=== PATIENT | male | born 1985 | race Caucasian/White ===

== ENCOUNTER 2024-10-19 21:20 | Emergency (ER) | payer BC, SELFPAY ==
[2024-10-19 21:26] VITALS: BP 167/105
[2024-10-19 21:47] LABS: Hematocrit 41.0 % (39.0-52.0); Hemoglobin 13.6 g/dL (13.0-18.0); Mean Corp Hgb Conc. 33.2 g/dL (33.0-37.0); Mean Corpuscular Volume 84.0 fL (80.0-94.0); Nucleated Red Blood Cells % 0 % (-); Platelet Count 218 10^3/uL (130-400); Red Cell Dist. Width 14.1 % (11.5-14.5)
[2024-10-19 22:06] LABS: Troponin I < 0.012 ng/ml
[2024-10-19 22:27] VITALS: BP 143/79
[2024-10-19 22:41] LABS: ALT (SGPT) 29 U/L (0-50); AST (SGOT) 25 U/L (17-59); Albumin 4.9 g/dl (3.5-5.0); Alkaline Phosphatase 41 U/L (38-126); Blood Urea Nitrogen 24 mg/dl (9-20); Calcium 9.5 mg/dl (8.4-10.2); Carbon Dioxide 23 mmol/L (22-30); Glucose 97 mg/dl (70-99); Potassium 3.9 mmol/L (3.5-5.1); Sodium 141 mmol/L (135-145); Total Protein 8.1 g/dl (6.3-8.2); eGFR > 60.00
[2024-10-19 22:47] VITALS: BP 126/71
[2024-10-19 22:47] LABS: Chloride 108 mmol/L (98-107)
[2024-10-19 23:00] VITALS: BP 133/75
[2024-10-19 23:06] VITALS: BMI 39.3
[2024-10-19 23:58] VITALS: BP 128/67; BP 131/81; BP 135/76; PULSE 62; PULSE 66
[2024-10-20 00:55] LABS: Troponin I < 0.012 ng/ml
[2024-10-20 01:00] VITALS: BP 106/65
[2024-10-20 01:02] LABS: D-Dimer < 0.27 ug/mlFEU (0.00-0.50)
--- NOTE | 2024-10-20 01:02 | ED.GENMED ---
History of Present Illness
General
Chief Complaint: Chest Pain
Source: patient
Exam Limitations: none
Time Seen by Provider: 10/19/24 23:25
Nursing documentation reviewed up to this point in time: agreed with
History of Present Illness
History of Present Illness:
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
lightheadedness and left sided chest pain. Patient reports that his symptoms started around 8:30 PM this evening. They started when he was driving back from work. The pain comes on randomly and is not related to exertion or eating. He feels the
pain on the left side of his chest. He denies any recent heavy lifting. He denies any history of MS. He is never had pain like this before. He states that when he takes a deep breath, he feels the pain more. Patient also reports that he feels
some intermittent tingling in his arms and legs that comes and goes at random. He denies any family history of coronary artery disease. He does not take any Lasix for cardiomyopathy and denies any shortness of breath. He also feels like he has
intermittent palpitations. He denies dizziness, visual changes, syncopal episodes. He follows with Dr. De La Garza with [facility] who is an [employer] worker and he also follows with a congenital heart disease specialist with [facility].
Past History
Past History
ED Past Medical History: Other (Congenital heart disease)
ED Past Surgical History: Cardiac
Social History
Tobacco: Non-smoker
Employment: Employed
Family History
Family History: Other (Noncontributory)
Review of Systems
Review of Systems
All Other Systems: ROS reviewed and negative except as documented in HPI and ROS
Phy Exam
Physical Exam
Physical Exam:
General: Patient is well appearing and in no acute distress; non-toxic
Skin: Warm and dry, no rashes or lesions
Head: Normocephalic, atraumatic
Eyes: Sclera non-icteric. EOMs intact.
Cardiac: Regular rate and rhythm, no murmurs, mild tenderness palpation of the left external chest wall
Peripheral Vascular: No lower extremity swelling or edema
Pulm: Normal respiratory effort, no wheezes, rales, rhonchi
Abdomen: No abdominal tenderness to palpation
Neuro: CN II-XII intact, no focal neurologic deficits.
Psychiatric: Appropriate mood and affect.
Scores
Heart Score for Chest Pain Patients
STEMI patient?: No
History: Slightly or Non-Suspicious
ECG: Normal
Age: </= 45 years
Risk Factors: 1 or 2 Risk Factors
Troponin: </= Normal Limit
Heart Score for Chest Pain Patients: 1
Heart Score Risk: 2.5% MACE over next 6 weeks
Course
Orders/Labs/Results
Orders:
Orders
10/19/24 00:30
Electrocardiogram (*1) Urgent
Reason for Study: Chest Pain
Troponin I Urgent
10/19/24 21:21
Electrocardiogram (*1) Urgent
Reason for Study: Chest Pain
EKG- Treatment ONCE
10/19/24 21:25
Cardiac Monitoring- Treatment ONCE
IV Insert/Care/Rem.- Treatment PRN
O2 Therapy [RESP] Urgent
Titrate/Wean O2 to maintain O2 sat greater than (%): 90
Special Instructions: Maintain sats >/=90%
Pulse Ox/spot Check [RESP] Urgent
Quantity: 1
Special Instructions: ON ROOM AIR
10/19/24 21:31
Complete Blood Count/With Diff Urgent
Comprehensive Metabolic Panel Urgent
Troponin I Urgent
10/19/24 23:40
D-Dimer Urgent
CR Chest - 2 Views Urgent
Comment:
Reason For Exam: shortness of breath, dizzinesss
10/19/24 23:45
Orthostatic VS- Treatment ONCE
10/20/24 00:04
pacemaker [Interrogate Pacemaker- Treatment] ONCE
10/20/24 00:14
NT-proBNP Urgent
Comment: COMBINED ORDERS
10/20/24 01:04
0.9% Sodium Chloride 500 ml [Nss] 500 ml IV BOLUS
Abnormal Lab Results
10/19/24
21:31
Chloride 108 H mmol/L
(98-107)
BUN 24 H mg/dl
(9-20)
10/19/24 21:31
10/19/24 21:31
Vital Signs
Initial and Last Documented VS:
Initial Vital Signs
Temp Pulse Resp BP Pulse Ox
97.9 F 73 19 167/105 97
10/19/24 21:26 10/19/24 21:26 10/19/24 21:26 10/19/24 21:26 10/19/24 21:26
Last Documented Vital Signs
Temp Pulse Resp BP Pulse Ox
97.9 F 71 17 122/78 96
10/19/24 21:26 10/20/24 01:56 10/20/24 01:56 10/20/24 01:56 10/20/24 01:56
MDM/Problems Addressed
Differential Diagnosis Includes:
Differentials include ACS, acute heart failure, musculoskeletal sprain/strain, GERD, dysrhythmia
MDM/Problems Addressed:
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
lightheadedness and left sided chest pain. It started when he was driving. He reports that the pain comes and goes at random. Currently, he does not feel the pain but feels slightly lightheaded and has a sensation of tingling in his upper and
lower extremities. Physical exam he is well-appearing in no acute distress he has minimal tenderness of the left external chest wall his heart is regular in rhythm with no murmurs. His lungs are clear. He does have a significant cardiac history
with congenital heart disease and pacemaker induced cardiomyopathy. He had blood work done he had an troponin x 2 and his EKG does not show any concerning findings. He went for chest x-ray which showed mild cardiomegaly but no signs of acute
pulmonary edema no signs of any pleural effusions. His blood work does show slightly elevated BUN. He received IV fluids. Suspect the mild dehydration, patient has not exhibited any signs of GI bleeding he has not had dark tarry stools no
abdominal pain, no hematemesis no rectal bleeding. In addition his hemoglobin is normal. Patient symptoms seem to improve with IV fluids. He is currently chest pain-free. He feels well enough to be discharged. He got a pacemaker interrogation
here as well which showed no evidence of dysrhythmias recently. Advised patient to continue to monitor his symptoms and to call his primary general handling supervisor to schedule a follow-up appointment this week. Patient expressed understanding. Strict return
precautions discussed. Patient stable for discharge
Chronic conditions affecting care:
Congenital heart disease, pacemaker induced cardiomyopathy, A-fib in the past
*Pulse Oximetry
SaO2: 95
Oxygen Mode of Delivery: Room air
Patient hypoxic: no
*Critical Care Note
Total Time (30-74mins, 75-104mins- exclusive of procedures): Not Applicable
Data Reviewed
Review of Other/Old Records Reveals: Records (Reviewed external medical report summary, reviewed appointment summary from patient seen for general medical exam, reviewed August 04, 2020 medical exam he is doing well and his labs are
normal he is working on exercise and weight loss) and Discharge Summary (Reviewed ER physician augmentation from 10/24/2016 patient seen for anxiety and chest discomfort he had a unremarkable workup and was chest pain-free at the time of discharge)
Source: patient and records
Patient Management
Escalation/DeEscalation of care consider admission/obs:
Admit not indicated, patient stable for discharge
ED Attending Note
-
Portions of this chart may have been created with voice recognition software.� Occasional wrong word or��sound alike� substitutions may have occurred due to the inherent limitations of voice recognition software.
Discharge Plan
Departure
Patient Disposition: Home (Routine Discharge)
Date of Disposition: 10/20/24
Time of Disposition: 02:00
Patient with high blood pressure during this ER visit?: Yes
Condition: Good
Discharge Problem:
Chest pain, Episodic lightheadedness
Instructions: Chest pain - Discharge instructions, BLOOD PRESSURE
Prescriptions:
No Action
lorazepam 0.5 MG tablet
0.5 mg PO Q6HPRN PRN (Reason: anxiety) Qty: 10 0RF
Referrals:
Alexis Bunch DO [Family Provider, Family Practice]
Activity Restrictions/Additional Instructions:
Please call your primary general handling supervisor to schedule follow-up appointment. Please continue to monitor your symptoms and rest tomorrow.
PLEASE RETURN EMERGENCY DEPARTMENT SHOULD YOU DEVELOP SHORTNESS OF BREATH, FAINTING SPELLS, RECTAL BLEEDING, DARK TARRY STOOLS, ABDOMINAL PAIN, FEVERS OR CHILLS, COUGHING UP OF BLOOD, ACUTE WORSENING OR SYMPTOMS, OR ANY OTHER SIGNS OR SYMPTOMS
WORRISOME TO YOU.
Interventions
Interventions:
*Risk Screen - Suicide Last Done: 10/19/24 21:26
*General Assessment Last Done: 10/19/24 23:07
*Neglect/Abuse Screening Last Done: 10/19/24 21:26
*ED- Fall Risk Assessment Last Done: 10/19/24 23:07
*ED COVID-19 Vaccine History Last Done: 10/19/24 23:07
*Nursing Disposition Last Done: 10/20/24 02:07
ED- Cardiac Assessment Last Done: 10/19/24 23:09
Discharge Date and Time
Discharge Date/Time: 10/20/24 02:08
Print Language: [place] CITIZ[place]
[2024-10-20] MEDS: NSS 500 IV (01:11)
[2024-10-20 01:56] VITALS: BP 122/78
== END 2024-10-20 02:08 | disposition home or self-care (01) ==
LOC: EMR 21:20
PROVIDERS: Physician Assistant; EMERGENCY PHYSICIAN Emergency Medicine; FAMILY PHYSICIAN Family Medicine
DX: R07.9 Chest pain, unspecified (principal); R42 Dizziness and giddiness; Q24.9 Congenital malformation of heart, unspecified; I44.2 Atrioventricular block, complete; Z95.0 Presence of cardiac pacemaker; I48.91 Unspecified atrial fibrillation
CPT/HCPCS: 99285; 96360; 71046; 80053; 83880; 84484; 85025; 85379; 93005